=== PATIENT | male | born 1950 | race Caucasian/White ===

== ENCOUNTER 2017-10-09 12:08 | Emergency (ER) | payer MEDICARE, BC ==
[~2017-10-09] VITALS: Ht 182.9 cm; Wt 95.3 kg
[~2017-10-09 12:08] MED LIST: AMARYL2 MG PO; AMARYL4 MG PO; ISOSORBIDE MONO30 M1 PO; LEVEMIR100 UNIT/1 SQ; METOPROLOL SUCC50 MG PO; NITROSTAT0.4 MG PO
[2017-10-09] MEDS ORDERED: METHYLPREDNISOLONE SOD SUCC 40 MG/ML VIAL IM ONE (12:45)
[2017-10-09] MEDS ORDERED: HYDROXYZINE HCL25 MG PO (12:47)
== END 2017-10-09 12:45 | disposition home or self-care (01) ==
LOC: FSED 12:08
DX: T78.3XXA Angioneurotic edema, initial encounter (principal); J30.89 Other allergic rhinitis; I10 Essential (primary) hypertension; E78.5 Hyperlipidemia, unspecified; I51.9 Heart disease, unspecified; Z95.1 Presence of aortocoronary bypass graft
CPT/HCPCS: 99282; J2920

== ENCOUNTER 2019-12-13 10:24 | Inpatient (IN) | payer MEDICARE, BC ==
[~2019-12-13] VITALS: Ht 182.9 cm; Wt 95.3 kg
[~2019-12-13 10:24] MED LIST changes: +HYDROXYZINE HCL25 MG PO
--- OUTSIDE RECORDS SUMMARY | 2019-12-13 10:26 | XMS REPORT ---
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 Allergies, Adverse Reactions, Alerts This patient has no known allergies or adverse reactions. Medications Ordered Medication Name Filled Medication Name Start Date Stop Da te Current Medication? Ordering Clinician Indication Dosage Frequency Signature (SIG) Comments Components Hydroxyzine Hcl 25 Mg Tablet Hydroxyzine Hcl 25 Mg Tablet 2017-09-14 7 00:00:00 Yes Rosie Momin Md 25 Every 6 Hours as ne eded for Itching Glimepiride (Amaryl) 2 Mg Tablet Glimepiride (Amaryl) 2 Mg Tablet Yes 2 Every Evening Glimepiride (Amaryl) 4 Mg Tablet Glimepiride (Amaryl) 4 Mg Tablet Yes 4 Every Morning Insulin Detemir (Levemir) 100 Unit/1 Ml Vial Insulin D etemir (Levemir) 100 Unit/1 Ml Vial Yes 20 Bedtime Isosorbide Mononitrate 30 Mg Tab.er.24h Isosorbide Mononitra te 30 Mg Tab.er.24h Yes 30 Daily Metoprolol Succinate 50 Mg Tab.er.24h Metoprolol Succinate 50 Mg Ta b.er.24h Yes 50 Daily Nitroglycerin (Nitrostat) 0.4 Mg Tab.subl Nitroglyceri n (Nitrostat) 0.4 Mg Tab.subl Yes .4 Encounters Start Date/Time End Date/Time Encounter Type Admission Type [facility] Care Department Encounter ID 2017-10-09 12:08:00 2017-10-09 12:45:00 Departed Emergency Room [facility] [id number]
[2019-12-13] MEDS ORDERED: ASPIRIN 325 MG TAB PO NR (11:15)
[2019-12-13] MEDS ORDERED: SODIUM CHLORIDE FLUSH 10 ML SYR INJ PRN (11:15)
[2019-12-13 11:31] LABS: EOSINOPHILS # (AUTO) 0.1 (0.0-0.4); EOSINOPHILS % 0.6 % (0.0-6.0); HEMATOCRIT 35.5 % (38.2-49.6); HEMOGLOBIN 11.7 g/dL (14.0-18.0); LYMPHOCYTES # (AUTO) 1.5 (1.0-3.2); MEAN CORPUSCULAR HEMOGLOBIN 27.3 pg (28-32); MEAN CORPUSCULAR VOLUME 82.8 fL (81-99); MONOCYTES # (AUTO) 0.6 (0.2-0.8); MONOCYTES % 6.9 % (4.4-11.3); NEUTROPHILS # (AUTO) 6.3 (2.1-6.9); NEUTROPHILS % 74.4 % (38.7-80.0); PLATELET COUNT 206 x10e3/uL (140-360); RED BLOOD COUNT 4.29 x10e6/uL (4.3-5.7); RED CELL DISTRIBUTION WIDTH 13.2 % (11.7-14.4)
[2019-12-13 11:42] LABS: INR 0.92; PROTHROMBIN TIME 12.9 seconds (11.9-14.5)
[2019-12-13 11:43] LABS: PARTIAL THROMBOPLASTIN TIME 30.1 seconds (23.8-35.5)
--- NOTE | 2019-12-13 11:47 | NUR ---
PATIENT DIABETIC BUT REFUSES TO TAKE MEDICATIONS PRESCRIBED SUCH CHOLESTEROL MEDS, INSULIN, BLOOD PRESSURE MEDICATION AND ALSO FOR PERIPHERAL NEUROPATHY
[2019-12-13 11:52] LABS: ALANINE AMINOTRANSFERASE 27 IU/L (0-55); ALBUMIN 3.2 g/dL (3.5-5.0); ALBUMIN/GLOBULIN RATIO 0.8 (0.8-2.0); ALKALINE PHOSPHATASE 117 IU/L (40-150); ANION GAP 13.9 mmol/L (8-16); BLOOD UREA NITROGEN 13 mg/dL (7-26); BUN/CREATININE RATIO 12 (6-25); CALCIUM 9.1 mg/dL (8.4-10.2); CARBON DIOXIDE 26 mmol/L (22-29); CHLORIDE 100 mmol/L (98-107); CREATINE KINASE 400 IU/L (30-200); CREATININE, SERUM 1.07 mg/dL (0.72-1.25); EST GLOMERULAR FILTRATION RATE > 60 ML/MIN (60-); GLUCOSE 255 mg/dL (74-118); POTASSIUM 3.9 mmol/L (3.5-5.1); SODIUM 136 mmol/L (136-145)
[2019-12-13] MEDS ORDERED: NITROGLYCERIN 2% OINT 1 GM PKT TOP ONE (12:15)
[2019-12-13] MEDS ORDERED: ENOXAPARIN SODIUM INJ 100 MG/ML SYR SC NR (12:15)
--- NOTE | 2019-12-13 13:10 | Diagnostic Imaging Report ---
EXAMINATION: PA and lateral views of the chest. COMPARISON: None CLINICAL HISTORY: Chest pain, dizziness DISCUSSION: Lines/tubes: None. Lungs: The lungs are well inflated and clear. There is no evidence of pneumonia or pulmonary edema. Pleura: There is no pleural effusion or pneumothorax. Heart and mediastinum: Cardiomediastinal silhouette is unremarkable. Pulmonary vasculature is normal. CABG changes. Bones and soft tissues: No acute bony abnormalities. Midline sternotomy wires. Degenerative changes in the thoracic spine. IMPRESSION: No acute cardiopulmonary abnormalities. Signed by: Dr. Christian Adame M.D. on 12/13/2019 1:07 PM
--- NOTE | 2019-12-13 13:14 | NUR ---
DR. MONTALVO SPEAKING WITH DR. Ishmael MCFARLANE
[2019-12-13] MEDS ORDERED: MORPHINE SULFATE 2 MG/ML SYR 1ML IV PRN (13:45)
[2019-12-13] MEDS ORDERED: CLOPIDOGREL BISULFATE 75 MG TAB PO NR (13:45)
[2019-12-13] MEDS ORDERED: FAMOTIDINE 20 MG/2 ML VIAL IV SCH (13:45)
[2019-12-13] MEDS ORDERED: ONDANSETRON HCL INJ 2MG/ML 2ML 2 MG/ML VIAL IV PRN (13:45)
[2019-12-13] MEDS ORDERED: CLOPIDOGREL BISULFATE 75 MG TAB ONE (13:57)
[2019-12-13] MEDS ORDERED: METOPROLOL TARTRATE 25 MG TAB PO SCH (14:30)
--- NOTE | 2019-12-13 14:44 | NUR ---
DR. Kina FOSTER AT BEDSIDE EVALUATING PATIENT
--- NOTE | 2019-12-13 15:04 | NUR ---
DR. Ishmael LUNA AT BEDSIDE EVALUATING PATIENT
--- NOTE | 2019-12-13 15:22 | NUR ---
COVID SWAB COMPLETED PRIOR TO GOING TO FLOOR
[2019-12-13 16:13] VITALS: BP 135/78
[2019-12-13] MEDS ORDERED: PNEUMOCOCCAL VACCINE POLYVALENT 23 MCG/0.5 ML VIAL IM NR (16:15)
--- NOTE | 2019-12-13 17:04 | History and Physical ---
PRIMARY CARE DOCTOR: Dr. Gomez. CHIEF COMPLAINT: Chest pain. HISTORY OF PRESENT ILLNESS: This is a 69-year-old gentleman, who had a triple-vessel CABG 7 years ago. Apparently, he has not seen any doctor for a while and also is not taking any pain medicine. Yesterday, while walking during his job, began to have substernal chest pressure with dizziness and shortness of breath. The discomfort went away once he rested. This has occurred multiple times, both yesterday and today, which prompted emergency room visit, each episode last about 10 to 15 minutes. At rest, the patient is comfortable. The patient also has dietary indiscretion and also does not take anything for his diabetes. In the emergency room, the patient received a dose of 600 mg of Plavix and 100 mg of Lovenox and 325 mg of aspirin. PAST MEDICAL AND SURGICAL HISTORY: 1. History of coronary artery disease, status post CABG. 2. Previous appendectomy. 3. Hypertension. 4. Diabetes. MEDICATIONS: None. ALLERGIES: NONE. SOCIAL HISTORY: Does not smoke. FAMILY HISTORY: Positive for heart disease. REVIEW OF SYSTEMS: A 10-point review of system obtained and nothing else is significant other than what is stated in HPI. PHYSICAL EXAMINATION: VITAL SIGNS: Temperature 98.0, pulse 75, respiratory rate 18, and blood pressure 139/80. GENERAL: No acute distress. HEENT: Anicteric. Oropharynx is clear. SKIN: No rash. LUNGS: Clear bilaterally. HEART: Regular rate and rhythm. Normal S1, S2. ABDOMEN: Soft, nondistended, and nontender. Normoactive bowel sounds. MUSCULOSKELETAL: Painless range of motion. NEUROLOGIC: Alert and oriented x3. Cranial nerves II through XII grossly intact. PSYCHIATRIC: No hallucination. LABORATORY DATA: White count 8.4, hemoglobin 11.7, platelet count 206. PT, PTT are normal. BUN 13, creatinine 1.07, sugar 255. Troponin is 20. Chest x-ray is normal. EKG feels T-wave abnormality. ASSESSMENT AND PLAN: 1. Ccc-XN-uykqegohx myocardial infarction. Dr. Wolf has been consulted. Possibly, he will need left heart catheterization. Echocardiogram has been order. We will continue his aspirin, beta-norma, and statin. We will continue to trend his troponins and get a lipid panel in the morning. 2. Hypertension, acceptable. Metoprolol has been started. 3. Diabetes. We will check A1c and also start him on sliding scale. 4. Gastrointestinal and deep venous thrombosis prophylaxis. He did get a dose of Lovenox in the emergency room. I have updated the at the bedside. All questions were answered. Yiching MD SAMEER Barragan/ANTIONETTE /[id number]
[2019-12-13] MEDS: METOPROLOL TARTRATE 25 MG TAB PO SCH (17:14)
[2019-12-13] MEDS: INSULIN LISPRO 100 UNIT/1 ML 3ML VIAL SQ SCH ×2 (17:15→21:00)
[2019-12-13] MEDS: NITROGLYCERIN 2% OINT 1 GM PKT TOP SCH (17:24)
--- NOTE | 2019-12-13 17:25 | NUR ---
Patient arrived to floor from ER at 1545. Patient was accompanied with , Antoinette, and arrived via stretcher. Patient ambulated to his bed without assistance. Patient is AOx3, on room air, all vitals are WNL, tele monitor #8 on, patient has a r AC IV working fine. Patient has no other issues or complaints at this time.
[2019-12-13 17:35] VITALS: BP 135/78
--- NOTE | 2019-12-13 18:40 | Consultation ---
DATE OF CONSULTATION: 12/13/2019 Cardiac consultation. REASON FOR CONSULTATION: Non-ST elevation myocardial infarction. HISTORY OF PRESENT ILLNESS: This 69-year-old gentleman, poorly compliant, known with coronary artery disease. He had three vessel coronary artery bypass surgery in 2012. He is also known with diabetes. He does not take any medication and he is "noncompliant at all." He does not smoke. He notice whenever he will go on golf course, he will have severe chest pressure and chest tightness. This repeated yesterday and today and that was very severe. He came to the emergency room. His EKG showed acute ST elevation myocardial infarction. His troponin came back positive at 19 with CK-MB and CK are elevated. Cardiac consultation is obtained. I have visited the patient. We loaded him with Plavix, aspirin and Lovenox and beta norma and he got nitrate. He is pain-free. He described having angina for sometime; however, in the last few days it is coming given not doing anything, and since then he had severe chest pain yesterday and again today. The pain is very typical for acute myocardial infarction. REVIEW OF SYSTEMS: GENERAL: No fever,no chills. HEENT: No vision problem. No hearing problem. PULMONARY: No cough. No hemoptysis. CARDIAC: As per acute illness. GI: No hematemesis. No melena. : No hematuria. No dysuria. MUSCULOSKELETAL: Occasional nonspecific aches. NEUROLOGICAL: Definite symptoms of peripheral neuropathy, more affecting his lower extremities, but also involving the fingers. No seizure activity. ENDOCRINE: The patient having polyuria, polydipsia. HEMATOLOGY: No easy bruising or bleeding. SOCIAL HISTORY: He is divorcee. 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 He is nonsmoker. He is social alcohol drinker. HOME MEDICATIONS: None. ALLERGIES: TETRACYCLINE. FAMILY HISTORY: Father of myocardial infarction at age 52. Brother and sister all with coronary artery disease at young age. He does have three children. He lost a daughter at younger age for alcohol complication. He does have one healthy son and one healthy daughter. PHYSICAL EXAMINATION: GENERAL: Well-built gentleman, he pain-free currently. VITAL SIGNS: Blood pressure 130/80, heart rate of 80, respiratory rate of 18. HEENT: Pupils are equal and reactive. NECK: No elevation of jugular venous pulsation. No thyromegaly. No lymphadenopathy. CHEST: Decreased air entry in bases, but clear to auscultation and percussion. HEART: PMI at 5th left intercostal space. Normal first, second heart sound. Sternotomy scar is noted. ABDOMEN: Soft with good bowel sounds. No organomegaly. EXTREMITIES: No cyanosis, no clubbing, no edema. Chronic skin changes noted. Decreased feet pulses. NEUROLOGIC: The patient complain of peripheral neuropathy like symptoms, but no localized motor deficits. LABORATORY DATA: White blood cell count of 8.4, hemoglobin of 11.6, hematocrit 36, and platelet count of 206,000. Sodium of 136, potassium 3.9, BUN of 13, creatinine of 1.07, glucose of 255. EKG showing normal sinus rhythm, lateral T-wave changes, LVH changes. Chest x-ray by report, no acute changes. Sternotomy is noted. IMPRESSION AND PLAN: 1. Non ST-elevation myocardial infarction, documented. 2. Hypertension. 3. Diabetes mellitus. 4. Poorly compliance. 5. Prior coronary artery bypass surgery. 6. Diabetes mellitus with end-organ damage. 7. The patient will be treated with beta norma, statin, and dual antiplatelet, low-molecular weight heparin. Case discussed. Options of workup are discussed. Questions are answered. MD HARLEY Mancia/CARLYL /[id number]
--- NOTE | 2019-12-13 19:49 | NUR ---
RECEIVED THE PATIENT IN BED AOX3 RESPIRATIONS ARE EVEN AND UNLABORED NON HEALING WOUND AT RT CALF . RT AC 20 G S/L DENIES CHEST PAIN .CONTINUE TO MONITOR
[2019-12-13 19:52] VITALS: BP 135/78
[2019-12-13 19:53] VITALS: BP 135/78
[2019-12-13 20:00] VITALS: BP 131/75
[2019-12-13] MEDS: ATORVASTATIN 20 MG TAB PO SCH (20:56)
[2019-12-13] MEDS ORDERED: SIMVASTATIN 40 MG TAB PO SCH (21:00)
[2019-12-14] VITALS (9 sets, daily range): BP systolic 108–144; BP diastolic 56–81
[2019-12-14] MEDS ORDERED: ENOXAPARIN SODIUM INJ 100 MG/ML SYR SC SCH
[2019-12-14 02:36] LABS: CREATINE KINASE MB 10.6 ng/mL (0-5.0)
[2019-12-14] MEDS: NITROGLYCERIN 2% OINT 1 GM PKT TOP SCH ×3 (05:43→11:51)
--- NOTE | 2019-12-14 05:55 | NUR ---
PT RESTED DURING THE NIGHT ,DENIES PAIN ,STOOL COLLECTED FOR OCCULT BLOOD ,.CALL LIGHT WITH IN REACH ,CONTINUE TO MONITOR
[2019-12-14 06:19] LABS: BASOPHILS % 0.1 % (0.0-1.0); EOSINOPHILS # (AUTO) 0.1 (0.0-0.4); EOSINOPHILS % 1.3 % (0.0-6.0); HEMATOCRIT 32.2 % (38.2-49.6); HEMOGLOBIN 10.6 g/dL (14.0-18.0); LYMPHOCYTES # (AUTO) 1.5 (1.0-3.2); LYMPHOCYTES % 19.2 % (18.0-39.1); MEAN CORPUSCULAR HEMOGLOBIN 27.1 pg (28-32); MEAN CORPUSCULAR HGB CONC 32.9 g/dL (31-35); MEAN CORPUSCULAR VOLUME 82.4 fL (81-99); MONOCYTES # (AUTO) 0.7 (0.2-0.8); MONOCYTES % 8.4 % (4.4-11.3); NEUTROPHILS # (AUTO) 5.5 (2.1-6.9); NEUTROPHILS % 70.6 % (38.7-80.0); PLATELET COUNT 181 x10e3/uL (140-360); RED BLOOD COUNT 3.91 x10e6/uL (4.3-5.7); RED CELL DISTRIBUTION WIDTH 13.2 % (11.7-14.4)
[2019-12-14 06:44] LABS: ANION GAP 11.8 mmol/L (8-16); BLOOD UREA NITROGEN 12 mg/dL (7-26); BUN/CREATININE RATIO 12 (6-25); CALCIUM 8.8 mg/dL (8.4-10.2); CARBON DIOXIDE 26 mmol/L (22-29); CHLORIDE 102 mmol/L (98-107); CREATININE, SERUM 1.01 mg/dL (0.72-1.25); EST GLOMERULAR FILTRATION RATE > 60 ML/MIN (60-); GLUCOSE 201 mg/dL (74-118); POTASSIUM 3.8 mmol/L (3.5-5.1); SODIUM 136 mmol/L (136-145)
[2019-12-14 07:08] LABS: CREATINE KINASE MB 8.4 ng/mL (0-5.0)
--- NOTE | 2019-12-14 07:08 | NUR ---
BEDSIDE REPORT GIVEN TO THE ON COMING NURSE
[2019-12-14] MEDS ORDERED: ASPIRIN 81 MG CHEW TAB PO ONE (07:15)
[2019-12-14 07:24] LABS: ALBUMIN 2.9 g/dL (3.5-5.0); BILIRUBIN,DIRECT 0.3 mg/dL (0.0-0.5)
[2019-12-14 07:40] LABS: CHOL/HDL RATIO 6.3 (3.9-4.7)
[2019-12-14 07:44] LABS: THYROID STIMULATING HORMONE 1.238 uIU/mL (0.350-4.940)
[2019-12-14] MEDS: ASPIRIN 325 MG TAB EC PO SCH (08:29)
[2019-12-14] MEDS: METOPROLOL TARTRATE 25 MG TAB PO SCH ×2 (08:29→17:00)
[2019-12-14] MEDS: INSULIN LISPRO 100 UNIT/1 ML 3ML VIAL SQ SCH ×4 (08:41→21:00)
[2019-12-14] MEDS ORDERED: PNEUMOCOCCAL VACCINE POLYVALENT 23 MCG/0.5 ML VIAL IM NR (09:00)
[2019-12-14] MEDS: CLOPIDOGREL BISULFATE 75 MG TAB PO SCH (11:50)
--- NOTE | 2019-12-14 19:39 | NUR ---
RECEIVED THE PATIENT IN BED AOX3 .CARDIAC CATH ON 12/14 NPO AFTER MIDNIGHT .DENIES PAIN .CALL LIGHT WITH IN REACH .CONTINUE TO MONITOR
[2019-12-14] MEDS: ATORVASTATIN 20 MG TAB PO SCH (21:16)
[2019-12-15] VITALS (9 sets, daily range): BP systolic 123–159; BP diastolic 43–86
[2019-12-15] MEDS: SODIUM CHLORIDE 0.9% 1000ML 1,000 ML IV SCH ×2 (05:07→17:55)
[2019-12-15 05:55] LABS: BASOPHILS % 0.1 % (0.0-1.0); EOSINOPHILS # (AUTO) 0.1 (0.0-0.4); EOSINOPHILS % 1.5 % (0.0-6.0); HEMATOCRIT 35.7 % (38.2-49.6); LYMPHOCYTES # (AUTO) 2.1 (1.0-3.2); LYMPHOCYTES % 25.4 % (18.0-39.1); MEAN CORPUSCULAR HEMOGLOBIN 27.7 pg (28-32); MEAN CORPUSCULAR HGB CONC 33.6 g/dL (31-35); MEAN CORPUSCULAR VOLUME 82.4 fL (81-99); MONOCYTES # (AUTO) 0.7 (0.2-0.8); MONOCYTES % 8.2 % (4.4-11.3); NEUTROPHILS # (AUTO) 5.2 (2.1-6.9); NEUTROPHILS % 64.6 % (38.7-80.0); PLATELET COUNT 195 x10e3/uL (140-360); RED BLOOD COUNT 4.33 x10e6/uL (4.3-5.7); RED CELL DISTRIBUTION WIDTH 13.1 % (11.7-14.4)
--- NOTE | 2019-12-15 06:01 | NUR ---
PT RESTED DURING THE NIGHT ,DENIES PAIN ,PT IS NPO FOR CARDIAC CATH .CALL LIGHT WITH IN REACH ,CONTINUE TO MONITOR
[2019-12-15 06:04] LABS: ALANINE AMINOTRANSFERASE 17 IU/L (0-55); ALBUMIN/GLOBULIN RATIO 0.8 (0.8-2.0); ALKALINE PHOSPHATASE 100 IU/L (40-150); ANION GAP 11.8 mmol/L (8-16); BLOOD UREA NITROGEN 12 mg/dL (7-26); BUN/CREATININE RATIO 13 (6-25); CALCIUM 8.9 mg/dL (8.4-10.2); CARBON DIOXIDE 26 mmol/L (22-29); CHLORIDE 103 mmol/L (98-107); CREATININE, SERUM 0.94 mg/dL (0.72-1.25); EST GLOMERULAR FILTRATION RATE > 60 ML/MIN (60-); GLUCOSE 198 mg/dL (74-118); POTASSIUM 3.8 mmol/L (3.5-5.1); SODIUM 137 mmol/L (136-145)
--- NOTE | 2019-12-15 07:09 | NUR ---
BEDSIDE REPORT GIVEN TO THE ONCOMING NURSE
--- NOTE | 2019-12-15 07:15 | NUR ---
BEDSIDE SHIFT REPORT RECEIVED FROM THE CATTLE DRIVER RN. EDUCATED PT ABOUT FALL PRECAUTIONS. PT VERBALIZED UNDERSTANDING. CALL LIGHT WITH IN EASY REACH. INSTRUCTED PT TO USE CALL LIGHT FOR ALL THE NEEDS. BED IS LOW AND LOCKED. SIDE RAILS X2. PT DENIES NEEDS AT THIS TIME.
[2019-12-15] MEDS: INSULIN LISPRO 100 UNIT/1 ML 3ML VIAL SQ SCH ×4 (07:30→21:00)
--- NOTE | 2019-12-15 08:00 | NUR ---
RAC 20 G IV SITE LEAKING. IV REMOVED. TIP INTACT. DRESSING APPLIED. NEW IV 20 G LFA STARTED. PT DENIED FURTHER NEEDS.
--- NOTE | 2019-12-15 08:20 | NUR ---
PAGED MENTAL HEALTH ASSISTANT AND INFORMED PT BLOOD SUGAR 234.
[2019-12-15] MEDS: ASPIRIN 325 MG TAB EC PO SCH (09:00)
[2019-12-15] MEDS: CLOPIDOGREL BISULFATE 75 MG TAB PO SCH (09:00)
--- NOTE | 2019-12-15 10:40 | NUR ---
PT OFF UNIT FOR PROCEDURE IN SAFE CONDITION.
[2019-12-15] MEDS ORDERED: HEPARIN SOD/SOD CHLORIDE 2,000 ML ONE (10:53)
[2019-12-15] MEDS ORDERED: IOPAMIDOL 370 MG/ML 200 ML INFUS..BTL INJ ONE ×2 (10:53→11:33)
[2019-12-15] MEDS ORDERED: LIDOCAINE HCL 2% LOCAL 20 ML VIAL ONE (10:53)
[2019-12-15] MEDS ORDERED: MIDAZOLAM HCL 2 MG/2 ML VIAL ONE (10:53)
[2019-12-15] MEDS ORDERED: FENTANYL CITRATE/PF 100MCG/2 ML INJ ONE (10:53)
[2019-12-15] MEDS ORDERED: SODIUM CHLORIDE 0.9% 50ML 50 ML ONE (11:33)
[2019-12-15] MEDS ORDERED: BIVALRIUDIN 250 MG/VIAL VIAL IV ONE (11:33)
[2019-12-15] MEDS ORDERED: CLOPIDOGREL BISULFATE 75 MG TAB ONE (11:53)
[2019-12-15] MEDS ORDERED: ASPIRIN 325 MG TAB ONE (11:53)
[2019-12-15] MEDS ORDERED: CEFAZOLIN SOD 2 GM/D5W 50ML 50 ML IV ONE (11:55)
--- NOTE | 2019-12-15 12:30 | NUR ---
PT ARRIVED FROM INFORMATICA ARCHITECT. PT IS AAOX4. RIGHT GROIN DRESSING CDI. POST CARDIAC CATHETERIZATION SAFETY MEASURES IN PLACE. PT DENIES NEEDS AT THIS TIME.
[2019-12-15] MEDS: METOPROLOL TARTRATE 25 MG TAB PO SCH ×2 (12:35→17:55)
--- NOTE | 2019-12-15 15:43 | NUR ---
Nutrition Screen Note RD Recommendation for Physician: - Recommend adding 1800 ADA to current diet Plan of Care: RD following, monitoring for tolerance and adequacy Nutrition reason for involvement: Nutrition Risk Trigger- MST4 Primary Diagnose(s): hyperglycemia, NSTEMI PMH: CAD, CABG x 3, DM Ht: 72 in Wt: 210 lb BMI: 28.5 kg/m2 IBW: [address] Assessment: (12/15/19) 69 YOM admitted for NSTEMI and hyperglycemia. Pt seen today per MST. Pt reports good appetite and po intake SENIOR PROCESS CONTROL TECH, eating lunch at time of visit- diet advanced and tolerating well. Pt reports UBW of "about 220#" within the past 6 months, no significant wt loss noted. Pt denies any N/V/C/D. Pt reports that he does not follow any diet restrictions at home. Pt receptive to diet education at time of visit. Pt educated on CHO sources, CHO counting, meal planning, foods to avoid, fats to avoid, and appropriate substitutes. All questions and concerns addressed at time of visit. Chart reviewed. Labs and meds reviewed. Will continue to monitor. Current Diet: Cardiac Malnutrition Evaluation (12/15/19) The patient does not meet criteria for a specified degree of malnutrition at this time. Will re-evaluate at follow-up as appropriate. Diet Education Needs Assessment: Diet education indicated, pt receptive and education provided 12/14. Learner(s): pt Barriers: none Cultural/Language Modifications: none Readiness: ready Method: handouts, discussion Topics: heart healthy diabetic nutrition therapy Understanding/Compliance: fair Diet tolerance: tolerating po Nutrition Care Level: low Signed: Edilia Jessica RD, LD, [facility]
--- NOTE | 2019-12-15 17:30 | NUR ---
DR. PINA AT BEDSIDE. MARIELA TO ADMINISTER EVENING METOPROLOL PER THE
--- NOTE | 2019-12-15 18:01 | NUR ---
PT RIGHT GROIN SITE DRESSING CDI. RIGHT AND LEFT PEDAL PULSES CHECKED CONTINUOUSLY. PT DENIES NEEDS AT THIS TIME.
--- NOTE | 2019-12-15 19:00 | NUR ---
BEDSIDE SHIFT REPORT GIVEN TO THE PROMOTIONAL MARKETING AGENT RN. PT DENIED FURTHER NEEDS.
--- NOTE | 2019-12-15 19:08 | NUR ---
Bedside nursing report with morning nurse. Pt lying in bed HOB 45. Pt denies pain at this time. Call light within reach. Bed low and locked.
--- NOTE | 2019-12-15 19:17 | Operative Report ---
DATE OF PROCEDURE: 12/15/2019 SURGEON: Igor Wolf MD TITLE OF PROCEDURE: 1. Left cardiac catheterization with confederated coos and bypass graft and left ventriculogram. 2. PCI and stenting of PDA via SVG to PDA. INDICATION: Kel-[id number]-bzqurymmx myocardial infarction. TECHNICAL DETAILS: After the usual sterile preparation and draping procedure, intravenous Versed and fentanyl given for sedation, local xylocaine for anesthesia. A 4-Zimbabwean sheath established in place, Yun left 4 and 3DRC catheter to engage coronary and bypasses multipurpose to engage SVG to PDA, pigtail for hemodynamic measurement and left ventriculogram. A decision was made to proceed with intervention for that reason the existing 4-Zimbabwean sheath exchanged to 6-Zimbabwean sheath. Angiomax given in the usual dosage. Guiding catheter was 6-Zimbabwean multipurpose. The balloon was 2 x 15 balloon. The stent is Resolute [place] 2.25 x 26 up to 9 atmospheres. Repeated angiogram showed excellent results. Attention was made to the right common femoral artery, which was closed successfully using Angio-Seal VIP. There were no complication and there was no blood loss. RESULTS: A. Coronary angiogram: 1. Left main very complex calcified 95% lesion. 2. LAD proximally occluded after small diagonal. 3. Circumflex coronary artery. Large artery with totally occluded 1st OM is supplying, 2nd OM is medium in size. 4. Right coronary artery, 60% ostial lesion, 80% distal lesion and then after that, the PDA is totally occluded and is going to collateral to small PLV. 5. Left internal mammary artery to the LAD is patent with 40% in the confederated coos circulation. 6. Radial artery graft to the OM is occluded. 7. Saphenous vein graft to the PDA is patent, but at the anastomosis there is long complex 99% lesion. B. Hemodynamic: Aorta pressure 140/80. LV pressure 140/20. C. Left ventriculogram in the right anterior oblique view showed normal size ventricle, ejection fraction of 50% with mild hypokinesis in the inferior segment. PCI PROCEDURE: Guiding catheter 6-Zimbabwean multipurpose. Anticoagulation with Angiomax. Balloon 2 x 15, stent 2.25 x 26 up to 9 atmospheres. Lesion prior to intervention at 99% following intervention at 0%. IMPRESSION: 1. Left main and three-vessel coronary artery disease. 2. Occluded radial graft to OM. 3. Patent left internal mammary graft to the LAD. 4. Disease distal anastomosis of the SVG to PDA, 99%. 5. Preserved left ventricular systolic function. 6. Successful PCI and stenting of the PDA via saphenous vein graft to the RCA. COMPLICATION: None. BLOOD LOSS: None. MD HARLEY Mancia/MODL /[id number]
[2019-12-15] MEDS: ATORVASTATIN 20 MG TAB PO SCH (21:00)
[2019-12-16] VITALS: BP 124/53
[2019-12-16 04:00] VITALS: BP 135/74
[2019-12-16 05:53] LABS: BASOPHILS % 0.1 % (0.0-1.0); EOSINOPHILS # (AUTO) 0.3 (0.0-0.4); EOSINOPHILS % 3.2 % (0.0-6.0); HEMATOCRIT 36.2 % (38.2-49.6); HEMOGLOBIN 11.8 g/dL (14.0-18.0); LYMPHOCYTES # (AUTO) 2.2 (1.0-3.2); MEAN CORPUSCULAR HEMOGLOBIN 27.1 pg (28-32); MEAN CORPUSCULAR HGB CONC 32.6 g/dL (31-35); MEAN CORPUSCULAR VOLUME 83.2 fL (81-99); MONOCYTES # (AUTO) 0.7 (0.2-0.8); MONOCYTES % 7.6 % (4.4-11.3); NEUTROPHILS # (AUTO) 5.9 (2.1-6.9); NEUTROPHILS % 64.9 % (38.7-80.0); PLATELET COUNT 194 x10e3/uL (140-360); RED BLOOD COUNT 4.35 x10e6/uL (4.3-5.7); RED CELL DISTRIBUTION WIDTH 13.3 % (11.7-14.4)
[2019-12-16 06:14] LABS: ALANINE AMINOTRANSFERASE 19 IU/L (0-55); ALBUMIN/GLOBULIN RATIO 0.8 (0.8-2.0); ALKALINE PHOSPHATASE 97 IU/L (40-150); ANION GAP 9.6 mmol/L (8-16); BLOOD UREA NITROGEN 10 mg/dL (7-26); BUN/CREATININE RATIO 10 (6-25); CALCIUM 8.9 mg/dL (8.4-10.2); CARBON DIOXIDE 26 mmol/L (22-29); CHLORIDE 104 mmol/L (98-107); CREATININE, SERUM 0.99 mg/dL (0.72-1.25); EST GLOMERULAR FILTRATION RATE > 60 ML/MIN (60-); GLUCOSE 188 mg/dL (74-118); POTASSIUM 3.6 mmol/L (3.5-5.1); SODIUM 136 mmol/L (136-145)
--- NOTE | 2019-12-16 07:10 | NUR ---
Received patient lying in bed with eyes open. Respiration even and unlabored without SOB. Call light in reach.
[2019-12-16 07:50] VITALS: BP 147/81
[2019-12-16] MEDS: INSULIN LISPRO 100 UNIT/1 ML 3ML VIAL SQ SCH ×2 (08:05→11:37)
[2019-12-16] MEDS: METOPROLOL TARTRATE 25 MG TAB PO SCH (08:05)
[2019-12-16] MEDS: ASPIRIN 325 MG TAB EC PO SCH (08:05)
[2019-12-16] MEDS: CLOPIDOGREL BISULFATE 75 MG TAB PO SCH (08:06)
[2019-12-16 09:23] VITALS: BP 147/81
[2019-12-16] MEDS ORDERED: LOSARTAN POTASSIUM 25 MG TAB PO SCH (09:30)
[2019-12-16 11:56] VITALS: BP 151/77
[2019-12-16] MEDS ORDERED: ONDANSETRON HCL 4 MG ORAL DISINTEGRATING TAB PO PRN (13:30)
[2019-12-16] MEDS ORDERED: PNEUMOCOCCAL VACCINE POLYVALENT 23 MCG/0.5 ML VIAL IM NR (13:35)
--- NOTE | 2019-12-16 13:58 | NUR ---
PIV to righ AC discontinued. Catheter tip intact, no bleeding noted. Transported patient via wheelchair to private vehicle. All personal belongings and discharge paperwork are taken by the patient.
--- NOTE | 2019-12-16 22:37 | Discharge Summary ---
PRIMARY CARE DOCTOR: Dr. Gomez. FINAL DIAGNOSIS: Acute non ST-elevation myocardial infarction. SECONDARY DIAGNOSES: 1. Diabetes with hyperglycemia. 2. Hypertension. 3. Previous coronary artery bypass grafting. CONSULTANTS: Dr. Wolf, Cardiology. PROCEDURE/STUDIES PERFORMED: 1. Echocardiogram. 2. Left heart catheterization with stent placement. HISTORY: Per H and P. HOSPITAL COURSE: The patient was admitted. Peak troponin was 20. The patient underwent left heart catheterization. A stent was placed. He will go home on aspirin and Plavix, also metoprolol and Lipitor. For better blood pressure control, losartan was started as well. The patient will also start metformin tomorrow, which will be 48 hours after left heart catheterization. The patient was seen and examined today. The patient will follow up with Dr. Wolf in 1 week. CONDITION ON DISCHARGE: Improved. DISCHARGE MEDICATIONS: Please see medication reconciliation form. It took 32 minutes total to discharge this patient including discussing it with Dr. Wolf. MD SAMEER Garcia/ANTIONETTE /[id number]
== END 2019-12-16 14:31 | disposition home or self-care (01) | DRG 247 ==
LOC: ER 10:24 → ERHOLD 13:44 → MED/SURG2 15:45
PROVIDERS: ADMIT Internal Medicine; ATTEND Internal Medicine
PROC: 027034Z Dilation of Coronary Artery, One Artery with Drug-eluting Intraluminal Device, Percutaneous Approach (ICD-10-PCS; principal; 2019-12-15)
PROC: 4A023N7 Measurement of Cardiac Sampling and Pressure, Left Heart, Percutaneous Approach (ICD-10-PCS; 2019-12-15)
PROC: B2131ZZ Fluoroscopy of Multiple Coronary Artery Bypass Grafts using Low Osmolar Contrast (ICD-10-PCS; 2019-12-15)
PROC: B2111ZZ Fluoroscopy of Multiple Coronary Arteries using Low Osmolar Contrast (ICD-10-PCS; 2019-12-15)
PROC: B2151ZZ Fluoroscopy of Left Heart using Low Osmolar Contrast (ICD-10-PCS; 2019-12-15)
DX: I21.4 Non-ST elevation (NSTEMI) myocardial infarction (principal); I25.110 Atherosclerotic heart disease of native coronary artery with unstable angina pectoris; Z91.19 Patient's noncompliance with other medical treatment and regimen; Z95.1 Presence of aortocoronary bypass graft; I10 Essential (primary) hypertension; E11.65 Type 2 diabetes mellitus with hyperglycemia
CPT/HCPCS: 36415; 71046; 80048; 80053; 80061; 80076; 82270; 82550; 82553; 82948; 83036; 83735; 84443; 84484; 85025; 85610; 85730; 87635; 90732; 92928; 93005; 93306; 96361; 99152; 99153; 99251; 99284; C1725; C1760; C1766; C1874; J0583; J0690; J1650; J2001; J2250; J3010; J7030; Q9967

== ENCOUNTER 2021-11-08 14:53 | Outpatient (RCR) | payer MEDICARE, BC | END 2021-11-10 | LOC: PT 14:53 | PROVIDERS: ATTEND Specialist | DX: M75.102 Unspecified rotator cuff tear or rupture of left shoulder, not specified as traumatic (principal); M25.512 Pain in left shoulder; M25.612 Stiffness of left shoulder, not elsewhere classified; M62.81 Muscle weakness (generalized) ==

== ENCOUNTER 2021-12-02 14:48 | Outpatient (RCR) | payer MEDICARE, BC | END 2021-12-10 | LOC: PT 14:48 | PROVIDERS: ATTEND Specialist | DX: M75.102 Unspecified rotator cuff tear or rupture of left shoulder, not specified as traumatic (principal); M25.512 Pain in left shoulder; M25.612 Stiffness of left shoulder, not elsewhere classified; M62.81 Muscle weakness (generalized) ==